=== PATIENT | female | born 1945 | race Hispanic/Latino ===

== ENCOUNTER 2021-03-21 08:24 | Day surgery (SDC) | payer MEDICARE ==
[2021-03-20 09:27] LABS: BASOPHILS % (AUTO) 1.3 % (0.0-5.0); EOSINOPHILS % (AUTO) 7.5 % (0.0-8.0); HEMATOCRIT 42.5 % (36-48); LYMPHOCYTES % (AUTO) 26.9 % (21.0-51.0); MEAN CORPUSCULAR HEMOGLOBIN 29.5 pg (27.0-33.0); MEAN CORPUSCULAR HGB CONC 33.6 g/dL (32.0-36.0); MEAN CORPUSCULAR VOLUME 87.6 fL (79-99); MONOCYTES % (AUTO) 8.4 % (3.0-13.0); NEUTROPHILS % (AUTO) 55.7 % (40.0-77.0); PLATELET COUNT (AUTO) 245 K/uL (130-400); RED BLOOD CELL COUNT(AUTO) 4.85 MIL/uL (4.00-5.50); RED CELL DISTRIBUTION WIDTH 14.2 % (11.0-15.5); WHITE BLOOD COUNT (AUTO) 4.6 K/uL (4.8-10.8)
[2021-03-20 09:38] LABS: CREATININE 0.8 mg/dL (0.5-1.5); INR 1.02 (0.85-1.15); POTASSIUM 4.2 mmol/L (3.5-5.1); PROTHROMBIN TIME 11.1 SEC (9.6-11.6)
[2021-03-20 09:39] LABS: PARTIAL THROMBOPLASTIN TIME 27.9 SEC (26.3-35.5)
[2021-03-20 10:39] LABS: APPEARANCE,URINE Clear (CLEAR); BILIRUBIN,URINE Negative (NEGATIVE); COLOR,URINE Yellow (YELLOW); GLUCOSE, URINE (UA) Negative (NEGATIVE); KETONES,URINE Negative (NEGATIVE); LEUKOCYTE ESTERASE ,URINE Negative (NEGATIVE); NITRATE,URINE Negative (NEGATIVE); OCCULT BLOOD,URINE Negative (NEGATIVE); PH,URINE 5.5 (5.0-8.0); PROTEIN,URINE Negative (NEGATIVE); UROBILINOGEN,URINE 0.2 mg/dL (0.2-1.0)
[2021-03-20 11:27] VITALS: BP 135/85
[2021-03-21] VITALS (9 sets, daily range): BP systolic 108–153; BP diastolic 55–87
[~2021-03-21] VITALS: Ht 165.1 cm; Wt 102.3 kg
[~2021-03-21 08:24] MED LIST: 0.9%NACL 1000ML 1,000 ML IV SCH
[2021-03-21] MEDS ORDERED: LEVO75CA5 PO (10:24)
[2021-03-21] MEDS ORDERED: VITAMIN D PO (10:24)
[2021-03-21] MEDS ORDERED: OMEP-459 PO (10:24)
[2021-03-21] MEDS ORDERED: SODIUM BICARB 50MEQ 50ML VIAL 50 ML ONE (11:40)
[2021-03-21] MEDS ORDERED: HEPARIN 10,000 UNIT/10ML (1,000 UNIT/ML) VIAL ONE (11:41)
[2021-03-21] MEDS ORDERED: FENTANYL CITRATE PF 50 MCG/1 ML 2ML VIAL ONE (11:41)
[2021-03-21] MEDS ORDERED: MIDAZOLAM HCL 1 MG/ML 2ML VIAL ONE (11:41)
[2021-03-21] MEDS ORDERED: BIVALIRUDIN 250 MG/VIAL IV ONE (11:41)
[2021-03-21] MEDS ORDERED: NITROGLYCERIN 2 MG VIAL IV ONE (11:41)
[2021-03-21] MEDS ORDERED: LIDOCAINE HCL 400MG/20ML VIAL ONE (11:41)
[2021-03-21] MEDS ORDERED: IOHEXOL 350 MG/ML 100ML INFUS..BTL IV ONE (11:42)
[2021-03-21] MEDS ORDERED: NICARDIPINE 25MG INJ IV ONE (12:32)
[2021-03-21] MEDS ORDERED: 0.9%NACL 1000ML 1,000 ML IV SCH (13:30)
== END 2021-03-21 17:10 | disposition home or self-care (01) ==
LOC: DAH 08:24
PROVIDERS: ATTEND Internal Medicine Cardiovascular Disease
DX: R94.39 Abnormal result of other cardiovascular function study (principal); I20.0 Unstable angina; I47.1 Supraventricular tachycardia; E66.9 Obesity, unspecified; Z79.899 Other long term (current) drug therapy; Z79.01 Long term (current) use of anticoagulants; Z82.49 Family history of ischemic heart disease and other diseases of the circulatory system; Z90.49 Acquired absence of other specified parts of digestive tract; Z68.37 Body mass index [BMI] 37.0-37.9, adult; Z85.528 Personal history of other malignant neoplasm of kidney
CPT/HCPCS: 36415; 71045; 80048; 81003; 85025; 85610; 85730; 93005; 93458; 96360; 96361; 99156; 99157; A4606; C1769; J0583; J1644; J2250; J3010; J3490; J7030; Q9967

== ENCOUNTER 2024-08-17 16:35 | Observation (INO) | payer MEDICARE ==
[~2024-08-17] VITALS: Ht 162.6 cm; Wt 99.8 kg
[~2024-08-17 16:35] MED LIST changes: -0.9%NACL 1000ML 1,000 ML IV SCH; +LEVO75CA5 PO; +OMEP-459 PO; +VITAMIN D PO
[2024-08-17 17:24] LABS: BASOPHILS # (AUTO) 0.02 K/uL (0.00-0.20); BASOPHILS % (AUTO) 0.2 % (0.0-5.0); EOSINOPHILS # (AUTO) 0.06 K/uL (0.00-0.70); EOSINOPHILS % (AUTO) 0.7 % (0.0-8.0); HEMATOCRIT 37.4 % (36-48); IMMATURE GRANULOCYTE ABSOLUTE 0.05 K/uL (0-1); LYMPHOCYTES # (AUTO) 0.7 K/uL (1.0-4.8); LYMPHOCYTES % (AUTO) 7.8 % (21.0-51.0); MEAN CORPUSCULAR HEMOGLOBIN 29.6 pg (27.0-33.0); MEAN CORPUSCULAR HGB CONC 34.2 g/dL (32.0-36.0); MEAN CORPUSCULAR VOLUME 86.6 fL (79-99); MONOCYTES # (AUTO) 0.4 K/uL (0.1-1.0); MONOCYTES % (AUTO) 4.2 % (3.0-13.0); NEUTROPHILS # (AUTO) 7.2 K/uL (1.8-7.7); NEUTROPHILS % (AUTO) 86.5 % (40.0-77.0); PLATELET COUNT (AUTO) 205 K/uL (130-400); RED BLOOD CELL COUNT(AUTO) 4.32 MIL/uL (4.00-5.50); RED CELL DISTRIBUTION WIDTH 13.6 % (11.0-15.5); WHITE BLOOD COUNT (AUTO) 8.4 K/uL (4.8-10.8)
[2024-08-17] MEDS ORDERED: ondanSETRON 4MG INJ IVP PRN (17:30)
[2024-08-17] MEDS ORDERED: acetaMINOPHEN 500 MG TABLET PO PRN (17:30)
--- NOTE | 2024-08-17 17:34 | NUR ---
ON ARRIVAL TO ED, PT LT GROIN NOTED WITH MILD SWELLING, AND BRUISING S/P VENOGRAM. DRESSING SITE DRY AND INTACT. WILL CONTINUE TO ASSESS SITE PER DR. GREENE ORDERS.
[2024-08-17 17:38] LABS: CREATININE 0.6 mg/dL (0.5-1.0); POTASSIUM 3.6 mmol/L (3.5-5.1)
[2024-08-17 17:42] LABS: ALBUMIN 3.1 g/dL (3.5-5.0); MAGNESIUM 1.7 mg/dL (1.80-2.40); TOTAL PROTEIN, SERUM 6.4 g/dL (6.0-8.3)
[2024-08-17] MEDS: 0.9%NACL 1000ML 1,000 ML IV SCH (17:46)
--- NOTE | 2024-08-17 17:57 | NUR ---
NOTIFIED DR COVINGTON AT 1755 OF PT INITIAL CBC RESULTS. INFORMED DR. SALDAÑA OF LABS.
--- NOTE | 2024-08-17 18:01 | NUR ---
PT HAS BLE STRONG PULSES/ BLE WARM ON ASSESSMENT.
--- NOTE | 2024-08-17 18:04 | NUR ---
1804 DR. COVINGTON IN ROOM W/ PT AND DAUGHTER AT BEDSIDE ASSESSING PT. AWARE OF INTITAL CBC LAB RESULTS.
[2024-08-17] MEDS: MAGNESIUM 2GM PREMIX 50ML 50 ML IV SCH (18:07)
--- NOTE | 2024-08-17 18:15 | NUR ---
SON PENDING TO BRING HOME MEDICATIONS.
[2024-08-17] MEDS ORDERED: LEVO50TA11 PO (19:30)
[2024-08-17] MEDS ORDERED: ERGO500093 PO (19:30)
--- NOTE | 2024-08-17 20:01 | HP ---
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 Patient reports that she has significant history of lower extremity varicose veins for which she previously underwent sclerotherapy, she has a history of chronic venous stasis with significant lower extremity venous insufficiency. Patient has been followed by Cardiology as outpatient and concern was patient likely had May-Thurner syndrome. Patient underwent peripheral venogram today for further evaluation for Jerrica-Sharmaine samayoaner in outpatient vascular lab. 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 Postprocedure, patient was noted to be hypotensive and patient underwent left lower extremity peripheral angiogram where there was concern that patient may have developed an arterial bleed involving left profunda femoris artery which was to be narrowed/ spasm with possible extravasation of contrast. Patient underwent balloon tamponade followed by placement of covered stent followed by Angio-Seal closure which did not work and manual pressure needed to be applied with patient developing small amount of bruising involving the left groin. Patient was transferred to [facility] [place] for close postprocedure. Patient currently denies any active chest pain or significant lower extremity. Hemoglobin remained stable and we will monitor this patient closely for the next 24 hours. If patient remains hemodynamically stable, anticipate d/c in am.] REVIEW OF SYSTEMS CONSTITUTIONAL: Denies fevers, chills, or night sweats. No unintentional weight loss reported. NEUROLOGICAL: Denies headache, amaurosis fugax, motor weakness, sensory deficit, vertigo/spinning sensation, gait abnormalities, or tremors. ENT: No hearing loss, otalgia, otorrhea, rhinitis, rhinorrhea, hoarseness, or sore throat. CARDIOVASCULAR: Denies any exertional angina, dyspnea on exertion, orthopnea, paroxysmal nocturnal dyspnea, palpitations, life-threatening arrhythmias, claudication. Patient reports having Hx of lower extremity swelling PULMONARY: Denies any shortness of breath, cough, phlegm/sputum, hemoptysis, pleuritic chest pain. SLEEP: Denies morning headaches, daytime somnolence or napping. Denies difficulty falling asleep, staying asleep, waking from sleep. Denies knowledge of snoring. GASTROINTESTINAL: Denies any type of dysphagia to either liquids or solids. Denies nausea, vomiting, pyrosis, early satiety, abdominal pain, diarrhea, constipation, or changes in stool consistency or caliber. Denies coffee-ground emesis, hematemesis, hematochezia, or melanotic stools. GENITOURINARY: Denies frequency, urgency, nocturia, hematuria or incontinence (Storage/Irritative symptoms.) Low urinary stream, straining to void, urinary intermittency or hesitancy, splitting of the voiding stream, terminal dribbling. ENDOCRINOLOGIC: Denies polyuria, polydipsia, polyphagia or heat/cold intolerances. HEMATOLOGIC: Denies thrombophilia/previous clots, or coagulopathy/bleeding disorders. ONCOLOGIC: Denies personal history of malignancy. DERMATOLOGIC: Denies rashes or pruritus. PSYCHIATRIC: Denies any suicidal or homicidal ideation. Denies hallucinations. PAST MEDICAL HISTORY: [Varicose veins of the bilateral lower extremity history chronic venous stasis dermatitis of the extremity, history significant extremity venous insufficiency obesity hypothyroidism ] PAST SURGICAL HISTORY: [History of bilateral lower extremity vein sclerotherapy for management of varicose veins, history of cholecystectomy ] PAST SOCIAL HISTORY: [Resides with family at home, uses a walker to ambulate, denies any active smoking or alcohol ] FAMILY HISTORY: [Denies family history of significant heart disease ] Allergies: Patient reports being allergic penicillin Medications: Family will be bringing medication list to be reconciled Coded Allergies: Penicillins (Verified Allergy, Unknown, 03/20/21) PHYSICAL EXAM GENERAL APPEARANCE: The patient is awake, alert, and oriented, in no acute cardiopulmonary distress. NEUROLOGICAL: Cranial nerves II-XII grossly intact. Motor is 5/5 in bilateral upper and lower extremities proximal to distal. No sensory deficits. HEENT: Face is symmetric. Pupils are equal and reactive. Extraocular movements are intact. NECK: Supple. No JVD. No thyromegaly. No submental, submandibular, pre- /postauricular, occipital or supraclavicular lymphadenopathy. CHEST: Normal chest expansion. No Telemetry. LUNGS: Absence of any rales, rhonchi or any wheezing. CARDIOVASCULAR: Regular. S1 and S2 normal. No appreciable rubs, murmurs or gallops. ABDOMEN: Soft, nontender, and nondistended. There is no rebound, voluntary guarding, or rigidity. : Deferred. No Menjivar. EXTREMITIES: changes of venous stasis noted of the bilateral lower extremities with edema, left groin with bruising noted, no significant large hematoma noted SKIN: No skin breakdown. Vital Sign (Last 24 Hours) 08/17/24 18:45 Temp 98.8 Pulse 67 Resp 14 B/P (MAP) 114/62 Pulse Ox 98 O2 Delivery Room Air* O2 Flow Rate 0 FiO2 21 LABS: Laboratory: Test 08/17/24 17:12 Range/Units White Blood Count 8.4 4.8-10.8 K/uL Red Blood Count 4.32 4.00-5.50 MIL/uL Hemoglobin 12.8 12.0-16.0 g/dL Hematocrit 37.4 36-48 % Mean Corpuscular Volume 86.6 79-99 fL Mean Corpuscular Hemoglobin 29.6 27.0-33.0 pg Mean Corpuscular Hemoglobin Concent 34.2 32.0-36.0 g/dL Red Cell Distribution Width 13.6 11.0-15.5 % Platelet Count 205 130-400 K/uL Mean Platelet Volume 9.4 7.5-10.5 fL Immature Granulocyte % (Auto) 0.6 0-1 % Neutrophils (%) (Auto) 86.5 H 40.0-77.0 % Lymphocytes (%) (Auto) 7.8 L 21.0-51.0 % Monocytes (%) (Auto) 4.2 3.0-13.0 % Eosinophils (%) (Auto) 0.7 0.0-8.0 % Basophils (%) (Auto) 0.2 0.0-5.0 % Neutrophils # (Auto) 7.2 1.8-7.7 K/uL Lymphocytes # (Auto) 0.7 L 1.0-4.8 K/uL Monocytes # (Auto) 0.4 0.1-1.0 K/uL Eosinophils # (Auto) 0.06 0.00-0.70 K/uL Basophils # (Auto) 0.02 0.00-0.20 K/uL Absolute Immature Granulocyte (auto 0.05 0-1 K/uL Nucleated Red Blood Cells 0.0 0.0-0.19 % White Cell Morphology Comment See comments Sodium Level 141 136-145 mmol/L Potassium Level 3.6 3.5-5.1 mmol/L Chloride Level 108 101-111 mmol/L Carbon Dioxide Level 28 21-32 mmol/L Blood Urea Nitrogen 9 7-18 mg/dL Creatinine 0.6 0.5-1.0 mg/dL Glomerular Filtration Rate Calc 91 >90 mL/min Random Glucose 99 70-105 mg/dL Total Calcium 8.8 8.5-10.1 mg/dL Magnesium Level 1.70 L 1.80-2.40 mg/dL Total Bilirubin 1.0 0.2-1.0 mg/dL Aspartate Amino Transf (AST/SGOT) 16 10-37 U/L Alanine Aminotransferase (ALT/SGPT) 13 12-78 U/L Alkaline Phosphatase 82 50-136 U/L Total Protein 6.4 6.0-8.3 g/dL Albumin 3.1 L 3.5-5.0 g/dL Current Medications Medications (Trade) Dose Ordered Sig/Grazyna Route PRN Reason Start Time Stop Time Status Last Admin Dose Admin Acetaminophen (TYLenol 500MG TAB) 500 mg Q6H PRN PO MILD PAIN (1-3) 08/17/24 17:30 09/16/24 17:29 Aspirin (Aspirin 81mg Chew Tab) 81 mg DAILY PO 08/18/24 09:00 09/17/24 08:59 Famotidine (Pepcid 20mg Tab) 20 mg DAILY PO 08/18/24 09:00 09/17/24 08:59 Magnesium Sulfate 50 ml @ 0 mls/hr PROTOCOL IV 08/17/24 18:00 09/16/24 17:59 08/17/24 18:07 50 MLS/HR Ondansetron HCl (zoFRAN 4MG INJ) 4 mg Q6H PRN IVP NAUSEA/VOMITING 08/17/24 17:30 09/16/24 17:29 Sodium Chloride 1,000 ml @ 100 mls/hr Q10H IV 08/17/24 17:30 09/16/24 17:29 08/17/24 17:46 100 MLS/HR DIAGNOSTICS / RADIOLOGY: None ASSESSMENT: Concern for May-Thurner syndrome status post peripheral lower extremity venogram with placement of venous stent, POA Post procedure Hypotension w/ Bradycardia, POA, resolved Possible arterial puncture involving the left profunda femoris artery s/p balloon tamponade and placement of covered stent by Dr. Cochran, 08/17/2023 History bilateral lower extremity varicose veins, POA Bilateral extremity venous insufficiency with venous stasis dermatitis, POA Obesity, POA PLAN: Patient will be monitored closely in PCCU postprocedure H&H remains stable postprocedure, monitor groin site closely tonight and patient will be placed on bedrest If H&H remained stable with a.m. labs, patient to resume aspirin and Plavix in a.m. Appreciate recommendations by Dr. Cochran Hold metoprolol tonight and monitor hemodynamics closely Resume rest home medications once available Anticipate discharge in a.m. if patient remains stable Date of service: 08/17/2024, Plan of care was discussed with patient at bedside, Myron Santiago MD Advanced Care Planning: Which of the following were discussed: Hospice care: Yes __ No _X_ Therapeutic options: Yes _X_ No __ Advance directives: Yes _X_ No __ Other discussions: Discussed with who?: Patient Voluntary nature of this service was explained to the patient? Yes _x_ No __ Amount of time spent: 20 minutes MYRON SANTIAGO MD Aug 17, 2024 20:01
[2024-08-17 21:55] LABS: HEMATOCRIT 36.2 % (36-48)
[2024-08-18] MEDS: levoTHYROxine 50 MCG TABLET PO SCH (06:21)
[2024-08-18 06:42] LABS: BASOPHILS # (AUTO) 0.03 K/uL (0.00-0.20); BASOPHILS % (AUTO) 0.4 % (0.0-5.0); EOSINOPHILS # (AUTO) 0.05 K/uL (0.00-0.70); EOSINOPHILS % (AUTO) 0.6 % (0.0-8.0); HEMATOCRIT 34.9 % (36-48); IMMATURE GRANULOCYTE ABSOLUTE 0.02 K/uL (0-1); LYMPHOCYTES % (AUTO) 12.8 % (21.0-51.0); MEAN CORPUSCULAR HEMOGLOBIN 29.9 pg (27.0-33.0); MEAN CORPUSCULAR HGB CONC 34.7 g/dL (32.0-36.0); MEAN CORPUSCULAR VOLUME 86.2 fL (79-99); MONOCYTES # (AUTO) 0.6 K/uL (0.1-1.0); MONOCYTES % (AUTO) 7.1 % (3.0-13.0); NEUTROPHILS # (AUTO) 6.2 K/uL (1.8-7.7); NEUTROPHILS % (AUTO) 78.8 % (40.0-77.0); PLATELET COUNT (AUTO) 211 K/uL (130-400); RED BLOOD CELL COUNT(AUTO) 4.05 MIL/uL (4.00-5.50); RED CELL DISTRIBUTION WIDTH 13.8 % (11.0-15.5); WHITE BLOOD COUNT (AUTO) 7.8 K/uL (4.8-10.8)
[2024-08-18 06:55] LABS: CREATININE 0.5 mg/dL (0.5-1.0); POTASSIUM 3.4 mmol/L (3.5-5.1)
[2024-08-18] MEDS ORDERED: PoTASSium chl 10% ELIXIR 20MEQ 20 MEQ/15 ML UDCUP PO PRN (07:30)
[2024-08-18] MEDS ORDERED: PoTASSium chloRIDE 20MEQ ER 20 MEQ ERTAB PO PRN (07:30)
[2024-08-18] MEDS ORDERED: PoTASSium chloRIDE 20MEQ/100ML 100 ML IV PRN (07:30)
[2024-08-18] MEDS ORDERED: FAMOTIDINE 20MG TAB PO SCH (09:00)
--- NOTE | 2024-08-18 09:05 | PN ---
Patient is comfortable and stable with no groin pain, no leg pain, no leg edema at this time. Hemoglobin is stable and there is no hematoma palpable at the groin on either side. Patient is aware of the need for dual antiplatelet therapy for the next three months and will be discharged with prescription for clopidogrel and aspirin. I will see the patient in 2-3 weeks in my office. Vitals/Labs Vital Signs Date Time Temp Pulse Resp B/P (MAP) Pulse Ox O2 Delivery O2 Flow Rate FiO2 08/18/24 05:26 76 19 120/65 96 Room Air* 0 21 08/17/24 20:22 98.4 Laboratory Tests 08/17/24 17:12 08/17/24 21:50 08/18/24 05:50 Medications Current Medications Acetaminophen 500 mg Q6H PRN PO; Start 08/17/24 at 17:30; Stop 09/16/24 at 17:29 Ondansetron HCl 4 mg Q6H PRN IVP; Start 08/17/24 at 17:30; Stop 09/16/24 at 17:29 Famotidine 20 mg DAILY PO; Start 08/18/24 at 09:00; Stop 09/17/24 at 08:59 Aspirin 81 mg DAILY PO; Start 08/18/24 at 09:00; Stop 09/17/24 at 08:59 Sodium Chloride 1,000 ml @ 100 mls/hr Q10H IV Last administered on 08/18/24at 03:31; Start 08/17/24 at 17:30; Stop 09/16/24 at 17:29 Magnesium Sulfate 50 ml @ 0 mls/hr PROTOCOL IV Last administered on 08/17/24at 18:07; Start 08/17/24 at 18:00; Stop 09/16/24 at 17:59 Levothyroxine Sodium 50 mcg SYN PO Last administered on 08/18/24at 06:21; Start 08/18/24 at 06:30; Stop 09/17/24 at 06:29 Clopidogrel Bisulfate 75 mg DAILY PO; Start 08/18/24 at 10:30; Stop 09/17/24 at 10:29 Potassium Chloride 100 ml @ 100 mls/hr AD PRN IV; Start 08/18/24 at 07:30; Stop 09/17/24 at 07:29 Potassium Chloride 20 meq AD PRN PO; Start 08/18/24 at 07:30; Stop 09/17/24 at 07:29 Potassium Chloride 20 meq AD PRN PO; Start 08/18/24 at 07:30; Stop 09/17/24 at 07:29 CODY COVINGTON MD Aug 18, 2024 09:05
[2024-08-18] MEDS ORDERED: PANT40TA55 PO (09:09)
[2024-08-18] MEDS ORDERED: CLOP75TA32 PO (09:09)
[2024-08-18] MEDS ORDERED: ASPI-1443 PO (09:09)
[2024-08-18 09:20] VITALS: BP 117/64; PULSE 70; RESP 14; TEMP 98.4; O2SAT 97
--- NOTE | 2024-08-18 09:34 | DS ---
Discharge Summary Hospital Course Summary: Patient seen and examined in room ED [address] Cochran Admitting date 08/17/2024 S/p placement of venous stenting secondary to May-Thurner syndrome on 08/17/2024 Today on bedside evaluation patient was found awake alert and oriented x 3. The power chart reviewed, vital signs, laboratory tests, imaging test and medications have been reviewed. No incidences reported overnight by primary nurse. Latest vitals are stable, blood pressure 117/64. CBC and CMP. Transmission Tester recommends patient is a start dual antiplatelet therapy with Plavix and aspirin for the next three months. Prescription provided by Dr. Cochran. From medical standpoint patient is stable and cleared for discharge. From Cardiology standpoint patient is cleared. Advised to follow up with her PCP in 2-3 days for continued evaluation. Follow up with Dr. Clement as recommended in 2-3 weeks for continued evaluation. Patient and patient's daughter at bedside verbalized understanding of instructions and discharge plan. Medications have been reconciled. Script has been sent to patient's pharmacy. Live In Companion(s): Transmission Tester Dr. Cochran Procedure(s): S/p peripheral venogram in outpatient setting on 08/17/2024 Assessment/Plan: ASSESSMENT: Concern for May-Thurner syndrome status post peripheral lower extremity venogram with placement of venous stent, POA Post procedure Hypotension w/ Bradycardia, POA, resolved Possible arterial puncture involving the left profunda femoris artery s/p balloon tamponade and placement of covered stent by Dr. Cochran, 08/17/2023 History bilateral lower extremity varicose veins, POA Bilateral extremity venous insufficiency venous stasis dermatitis, POA Obesity, POA PLAN: Patient cleared from Cardiology standpoint H&H remains stable postprocedure, monitor groin site closely, placed on bedrest overnight Resuming aspirin and Plavix in a.m. as per rn pool Following recommendations by Dimas, cleared for discharge Hold metoprolol tonight and monitor hemodynamics closely Resume rest medications once available Medically stable and cleared for discharge PRN Treatment - Add when necessary meds for nausea, vomiting, pain, constipation, insomnia. DVT/GI prophylaxis- Continue SCDs and Protonix at current doses. Full CODE STATUS This document was generated in part using voice recognition software, occasional wrong word or sound alike substitutions may have occurred due to the inherent limitations of voice recognition software. Read the chart carefully and recognize using context, where the substitutions have occurred. Although every effort was made to edit the content, datastage consultant and typing errors may occur This case was discussed with Dr. Benito and above plan was formulated Discharge Instructions: Ok to discharge home. Continue Plavix, Aspirin and Pantoprazole as recommended by Dr. Cochran. Continue home meds as usual. Follow up with pcp in 2-3 days. Follow up with Dr. Cochran in 2-3 weeks as recommended for continued evaluation. This case was discussed with Dr. Benito and above plan was formulated Home Medications: Reported Medications Ergocalciferol (Vitamin D2) (Vitamin D2) 1,250 Mcg (86968 Unit) Capsule, 1250 MCG PO AD, CAP 08/17/24 Levothyroxine Sodium (Levothyroxine Sodium) 50 Mcg Tablet, 1 TAB PO DAILY for 30 Days, #30 TAB 0 Refills 08/17/24 Omeprazole Magnesium (Omeprazole Magnesium) 20 Mg Tablet.dr, 40 MG PO AM, TAB 03/21/21 Levothyroxine Sodium (Levothyroxine) 75 Mcg Capsule, 75 MCG PO AM, CAP 03/21/21 [Vitamin D] No Conflict Check, 1.25 MG PO AD 03/21/21 Time spent arranging discharge: 31-60 minutes ANISA RUSSELL Aug 18, 2024 09:34
[2024-08-18] MEDS: cloPIDOgrel 75MG TAB PO SCH (09:38)
[2024-08-18] MEDS: ASPIRIN 81MG CHEW TAB PO SCH (09:38)
--- NOTE | 2024-08-18 10:40 | NUR ---
PT STABLE AAOX4 NO C/O PAIN, LT GROIN SITE BRUSING NOTED, NO ACTIVE BLEEDING DRESSING D/I. PT IV CATHETER INTACT. PT DRESSED W/ ASSIST, INSTRUCTIONS GIVEN TO DAUGHTER AT BEDSIDE, 3 RX EMAILED TO PT PHARMACY, WILL START TODAY. PT DRIVEN HOME BY DAUGHTER.
== END 2024-08-18 10:50 | disposition home or self-care (01) ==
LOC: EDH 16:35 → EDHIP 16:36
PROVIDERS: ADMIT Internal Medicine; ATTEND Internal Medicine
DX: I87.1 Compression of vein (principal); I83.12 Varicose veins of left lower extremity with inflammation; I83.11 Varicose veins of right lower extremity with inflammation; I95.81 Postprocedural hypotension; E66.9 Obesity, unspecified; E03.9 Hypothyroidism, unspecified; Z79.82 Long term (current) use of aspirin; Z88.0 Allergy status to penicillin; Z90.49 Acquired absence of other specified parts of digestive tract; Z79.899 Other long term (current) drug therapy; Z68.37 Body mass index [BMI] 37.0-37.9, adult
CPT/HCPCS: 96374; 83735 ×2; 80053 ×2; 85025 ×2; 85014; 85018; 86850; 86900; 86901; 36415 ×2; G0378 ×18; G0379; J3475; J7030